=== PATIENT | female | born 1955 | race Two or more races ===

== ENCOUNTER → 2016-11-13 | Outpatient (CLI) | payer BC ==
[~2016-11-13] VITALS: Ht 152.4 cm; Wt 54.0 kg
[2016-11-13] VITALS (13 sets, daily range): BP systolic 123–144; BP diastolic 79–95
[~2016-11-13] MED LIST: ACETAMINOPHEN-1 EAC1 ORAL; LOSARTAN POTAS100 MG ORAL; Lidocaine 2% 20mg/ml/Epi 0.005mg/ml 20ml vial INJ ONE; METFORMIN HCL500 M1 ORAL; PT WILL BRING LIST; Sodium Bicarbonate 8.4% 50ml Inj IV ONE; VITAMIN C500 M1 ORAL; VITAMIN D1000 UNI1 ORAL; VITAMIN E1000 UNI5 PO
--- NOTE | 2016-11-13 11:02 | Pre-Procedure Note/Attestation ---
Pre-Procedure Note/Attestation Complete Prior to Procedure Planned Procedure: left Procedure Narrative: chest port removal Indications for Procedure Pre-Operative Diagnosis: Completed chemotherapy Attestation I attest that I discussed the nature of the procedure; its benefits; risks and complications; and alternatives (and the risks and benefits of such alternatives ), prior to the procedure, with the patient (or the patient's legal energy conservation representative). I attest that, if there was a reasonable possibility of needing a blood transfusion, the patient (or the patient's legal energy conservation representative) was given the [facility] standardized written summary, pursuant to the [place] Blood Safety Act ([place] Health and Safety Code # 1645, as amended). I attest that I re-evaluated the patient just prior to the surgery and that there has been no change in the patient's H&P, except as documented below: POORNIMA TYSON M.D. Nov 13, 2016 11:02
--- NOTE | 2016-11-13 11:03 | Moderate Sedation - Procedural ---
Moderate Sedation HPI Home Medication Reported Medications Vitamin E (Dl,Tocopheryl Acet) (VITAMIN E) 1,000 Unit Capsule, 1000 UNIT PO DAILY, CAP 11/13/16 Ascorbic Acid* (VITAMIN C*) 500 Mg Tablet, 500 MG ORAL DAILY, #30 TAB 0 Refills 11/13/16 Cholecalciferol (Vitamin D3)* (VITAMIN D*) 1,000 Unit Tablet, 2000 UNITS ORAL DAILY, #30 TAB 0 Refills 11/13/16 Losartan Potassium (LOSARTAN POTASSIUM) 100 Mg Tablet, 100 MG ORAL DAILY, TAB 07/04/16 [Pt Will Bring List] No Conflict Check 07/03/16 Discontinued Reported Medications Acetaminophen With Codeine (T#3) (TYLENOL #3 TAB*) Y Tab, 1 TAB ORAL Q4H Y for For Pain, TAB 08/01/16 Metformin Hcl* (METFORMIN HCL*) 500 Mg Tablet, 500 MG ORAL DAILY, TAB 08/01/16 Patient History Allergies: Coded Allergies: ADHESIVE TAPE (Verified Allergy, Severe, Rash/Skin Peeling , 11/13/16) EGG (Verified Allergy, Unknown, severe itching, 07/04/16) Green Valenzuela (Verified Allergy, Unknown, swelling of face, 07/04/16) PENICILLINS (Verified Allergy, Unknown, 07/03/16) Uncoded Allergies: EGGS (Allergy, Severe, 07/03/16) SEVERE ITCHING GREEN BEANS (Allergy, Severe, 07/03/16) SWELLING OF FACE PAST MEDICAL HISTORY: Past Surgeries: Social History: Pre-Procedural Mod Sedation Pre-Assessment Time: 11:00 Pre-Sedation Assessment: Elective Airway Assessment (Malampati): III Heart: normal Lungs: normal Abdomen: normal Extremities: normal Evaluation Hx of untoward rxns to mod sed: No Procedures/Plans: Radiology Plan for Moderate Sedation: Midazolam, Fentanyl ASA Score: I Informed Consent The nature of the procedure/sedation; its benefits; risks and complications; and alternatives (and the risks and benefits of such alternatives) were discussed with the patient (or their legal software support representative), prior to the procedure. All questions were answered to the patient's (or their legal software support representative's) satisfaction and the patient (or their legal software support representative) gave informed consent to the procedure. I attest that I re-evaluated the patient just prior to the surgery and that there has been no change in the patient's H&P, except as documented below: Post Procedure Assessment Communication: No Apparent Limitation Mental Status: Awake Respiration: Unlabored Skin Condition: WNL Adomen: WNL Nausea: NO Vomiting: NO POORNIMA TYSON M.D. Nov 13, 2016 11:03
--- NOTE | 2016-11-13 16:00 | Diagnostic Imaging Report ---
Indication: Left Port-A-Cath is no longer needed, due to completion chemotherapy Technique: Informed consent obtained prior to commencement of procedure. Procedural timeout performed. Total sterile technique, including sterile gloves and hand hygiene, hat, mask, sterile gown, large sterile drape, and preparation with 2% chlorhexidine utilized. Local anesthesia of the skin along the pre-existing scar and deep surrounding the port reservoir. A skin incision was made along the pre-existing scar from the port placement. The reservoir was dissected from the surrounding soft tissues using blunt dissection, and removed. Deep 3-0 Vicryl sutures were used to close the pocket. Deep and superficial fascial layer closure of the wound using interrupted 3-0 and 4-0 Vicryl sutures was performed. The skin was closed Dermabond. Saved fluoroscopic spot images confirm the presence of a port removal, and complete absence post removal. The patient tolerated the procedure well, without immediate complication. Total fluoroscopy time 0.1 minutes. Total dose area product 2.7 dGycm2 Comparison: None Findings: As above Impression: Successful removal of left chest port catheter, as described
== END | disposition home or self-care (01) ==
LOC: RAD 09:44 → EDSTATUS 10:00
DX: C50.119 Malignant neoplasm of central portion of unspecified female breast (principal)
CPT/HCPCS: 36590; J3490